=== PATIENT | female | born 1955 | race Caucasian/White ===

== ENCOUNTER 2020-03-28 11:54 | Day surgery (SDC) | payer OTHER ==
[~2020-03-28] VITALS: Ht 165.1 cm; Wt 59.0 kg
[~2020-03-28 11:54] MED LIST: FISH OIL 1,0001 EAC2 NG
--- NOTE | 2020-03-28 13:42 | NUR ---
03/28/20 1342 Bernie Arguello 1337- PT ARRIVES TO PACU AWAKE AND ORIENTED. PT REPORTS NO PAIN OR NAUSEA. RESP EVEN AND UNLABORED. OXYGEN SAT HIGH 90'S TO 100% ON 2L VIA NC. 1341- PT PASSING FLATUS. 1342- OXYGEN TITRATED OFF.
--- NOTE | 2020-03-29 18:28 | OR ---
[facility] [address] [place], [place] [address] Signed DATE OF OPERATION: 03/28/2020 SURGEON: Kiesha Damian MD PREOPERATIVE DIAGNOSIS: History of tubular adenomas in 2011. POSTOPERATIVE DIAGNOSIS: Polyps x2 (cecum and left colon at 40 cm). PROCEDURE: Total colonoscopy to cecum with cold morcellation polypectomy x1 and cold snare polypectomy x1. ANESTHESIA: Intravenous sedation, fentanyl 100 mcg and Versed 4 mg. INDICATIONS: This 64-year-old white woman is a patient of Ms. in [place], [place] and the patient has been referred for consideration of surveillance colonoscopy. Colonoscopy was performed in 2011, which showed findings of a tubular adenoma. The patient currently has no symptoms of bleeding, diarrhea, or constipation. She does have family history of lymphoma in her father. She is admitted at this time to undergo colonoscopy understanding risks of bleeding, infection, and perforation. FINDINGS: The prep was excellent. Complete colonoscopy was undertaken to the cecum without question. She had a small polyp of the cecum, which was excised with cold morcellation technique and another larger polyp about 8 mm at least in size at 40 cm excised with cold snare technique. Both were retrieved and passed for pathology. There were no other findings of concern. DESCRIPTION OF PROCEDURE: The patient was brought to the endoscopy suite and placed in lateral decubitus position, given intravenous sedation to the point of slurred speech and nystagmus. Digital rectal examination was normal. An Olympus video colonoscope was passed in the rectum and manipulated throughout the colon noting a very good bowel prep. The colon was rather redundant, it was noted. The scope was ultimately advanced to the cecum. There was a small polyp of the cecum, which Electronically Signed By: KIESHA DAMIAN MD 03/29/20 1828 PATIENT NAME: SHAI PALM OPERATIVE REPORT DATE OF : 57 REPORT #: [id number] PHYSICIAN: KIESHA DAMIAN MD PCP: COSMO BENITEZ PA-C REPORT IS CONFIDENTIAL AND NOT TO BE RELEASED WITHOUT AUTHORIZATION [facility] [address] [place], [place] [address] Signed was excised with cold morcellation technique. The scope was further withdrawn and remaining colon was normal until approximately 40 cm from the anal verge where a sessile larger polyp approximately 1 cm in size was noted. This was sessile. This was excised with cold snare technique without problem. The scope was then withdrawn. The patient was taken to recovery room in good condition. Both polyps were retrieved and passed for pathology. CONCLUDING DIAGNOSIS: Polyps x2. PLAN: Recommend repeat colonoscopy in 3 years or sooner if adverse pathology is noted later if hyperplasia rather than adenomatous changes noted. MD GEGE Goel/MODL /[id number] Copies: ~ Electronically Signed By: KIESHA DAMIAN MD 03/29/20 1828 PATIENT NAME: SHAI PALM OPERATIVE REPORT DATE OF : 57 REPORT #: [id number] PHYSICIAN: KIESHA DAMIAN MD PCP: COSMO BENITEZ PA-C REPORT IS CONFIDENTIAL AND NOT TO BE RELEASED WITHOUT AUTHORIZATION
--- NOTE | 2020-03-30 12:34 | PATH ---
[facility] [address] [facility] [place], [place] [address] Signed SPECIMEN(S): A CECAL POLYP SPECIMEN(S): B COLON POLYP AT 40 CM SPECIMEN SOURCE: A. CECAL POLYP B. COLON POLYP AT 40 CM CLINICAL HISTORY: Surveillance colonoscopy; history of tubulovillous adenoma. MICROSCOPIC DESCRIPTION: Histologic sections of all submitted blocks are examined by light microscopy. These findings, together with the gross examination, support the pathologic diagnosis. FINAL PATHOLOGIC DIAGNOSIS: A. Colon, cecum, polyp, polypectomy: - Tubular adenoma. - Negative for high-grade dysplasia or malignancy. B. Colon, polyp at 40 cm, polypectomy: - Hyperplastic polyp. - Negative for dysplasia or malignancy. NAL:cml:C2NR GROSS DESCRIPTION: Two specimens are received in two containers, labeled "KS." A. The specimen, labeled "KS," and designated on the requisition "cecum polypectomy," is received in formalin and consists of one fragment of pink-crane tissue (0.3 x 0.3 x 0.1 cm). The specimen is submitted entirely in cassette (A1). B. The specimen, labeled "KS," and designated on the requisition "colon polypectomy, 40 cm," is received in formalin and consists of one fragment of pink-crane tissue (1.1 x 0.4 x 0.2 cm). The specimen is submitted entirely in cassette (B1). AC (under the direct supervision of a pathologist) The Gross Description was prepared using a voice recognition system. The report was reviewed for accuracy; however, sound-alike word errors, addition and/or deletions may occur. If there is any question about this report, please contact Client Services. PERFORMING LABORATORY: The technical component was performed by [employer], Tamanna Earlshane Jesse, PATIENT NAME: SHAI PALM PATHOLOGY DATE OF : 57 REPORT #: [id number] PHYSICIAN: JAMES JAMES PCP: COSMO BENITEZ PA-C REPORT IS CONFIDENTIAL AND NOT TO BE RELEASED WITHOUT AUTHORIZATION [facility] [address] [place], [place] [address] [place] [address] (Gypsum Roofer: Salma Berg MD; CLIA# [id number]). Professional interpretation was performed by [facility], [address] [address] (CLIA# [id number]). Diagnostician: Veronique Rouse MD Pathologist Electronically Signed 03/30/2020 Copies: ~ PATIENT NAME: SHAI PALM PATHOLOGY DATE OF : 57 REPORT #: [id number] PHYSICIAN: JAMES JAMES PCP: COSMO BENITEZ PA-C REPORT IS CONFIDENTIAL AND NOT TO BE RELEASED WITHOUT AUTHORIZATION
== END 2020-03-28 14:15 | disposition home or self-care (01) ==
LOC: OPS 11:54 → DS 13:00 → OPS 14:15
PROVIDERS: Surgery
PROC: 0DBE8ZZ Excision of Large Intestine, Via Natural or Artificial Opening Endoscopic (ICD-10-PCS; 2020-03-28)
PROC: 0DBH8ZZ Excision of Cecum, Via Natural or Artificial Opening Endoscopic (ICD-10-PCS; principal; 2020-03-28 13:00)
DX: Z12.11 Encounter for screening for malignant neoplasm of colon (principal); D12.0 Benign neoplasm of cecum; Z86.010 Personal history of colon polyps; F17.210 Nicotine dependence, cigarettes, uncomplicated
CPT/HCPCS: 99153; G0500; J2250; J3010

== ENCOUNTER 2023-06-06 09:45 | Day surgery (SDC) | payer MEDICARE ==
[~2023-06-06] VITALS: Ht 165.1 cm; Wt 59.0 kg
[2023-06-06 09:58] VITALS: BP 130/71
[2023-06-06] MEDS ORDERED: BRIMONIDINE-TIMO5 ML OD (10:02)
[2023-06-06] MEDS ORDERED: LATANOPROST2.5 ML OPTH (10:02)
--- NOTE | 2023-06-06 11:18 | NUR ---
PT AND PT'S RIDE UPDATED ON WAIT TIMES FOR PROCEDURE. BOTH PARTIES AGREEABLE AND UNDERSTANDING.
--- NOTE | 2023-06-06 13:34 | NUR ---
06/06/23 1334 Becky Treadwell 1324 PT TO PACU AWAKE AND ALERT DENIES PAIN AND NAUSEA. PT ON ROOM AIR MAINTAINS SATS ABOVE 90%. PT ASKING QUESTIONS ABOUT PROCEDURE ALL ANSWERED TO PT SATISFACTION.
[2023-06-06 13:51] VITALS: BP 120/64
--- NOTE | 2023-06-09 15:34 | OR ---
[facility] [address] [place], [place] [address] Signed DATE OF OPERATION: 06/06/2023 SURGEON: Kiesha Damian MD PREOPERATIVE DIAGNOSIS: History of tubular adenoma 2019. POSTOPERATIVE DIAGNOSIS: 1 cm polyp, proximal ascending colon (excised). PROCEDURE: Total colonoscopy to cecum with cold snare polypectomy x1. ANESTHESIA: Intravenous sedation; fentanyl 100 mcg and Versed 7 mg. INDICATION: This 67-year-old white woman underwent colonoscopy in 2011. At that time, having a tubulovillous adenoma of the rectum. Colonoscopy in 2019 confirmed a hyperplastic polyp at 40 cm and a tubular adenoma of the cecum without dysplasia. She is admitted for screening colonoscopy at this time. She understands the risk of bleeding, infection, and perforation. FINDINGS: The prep was excellent. Complete colonoscopy was undertaken to the cecum. There was a soft sessile polyp of the proximal ascending colon, which was excised with cold snare technique. The remaining colon was normal. DESCRIPTION OF PROCEDURE: The patient was brought to the endoscopy suite and placed in the lateral decubitus position, given intravenous sedation to the point of slurred speech and nystagmus. Digital rectal examination was normal. An Olympus video colonoscope was passed in the rectum and manipulated throughout the colon ultimately intubating the cecum itself. The ileocecal valve and appendiceal orifice were normal. The scope was withdrawn from that point and immediately noted in the proximal ascending colon was a small sessile soft polyp, this was excised with cold snare technique. Morcellation was required to had tenacious attachments. Once polypoid tissue was explanted, the scope was then withdrawn and the remaining colon was found to be normal including retroflexed view of the rectum. The scope was removed Electronically Signed By: KIESHA DAMIAN MD 06/09/23 1534 PATIENT NAME: SHAI PALM OPERATIVE REPORT DATE OF : 57 REPORT #: [id number] PHYSICIAN: KIESHA DAMIAN MD PCP: COSMO BENITEZ PA-C REPORT IS CONFIDENTIAL AND NOT TO BE RELEASED WITHOUT AUTHORIZATION [facility] [address] [place], [place] [address] Signed and the patient was taken to the recovery room in good condition. CONCLUDING DIAGNOSIS: Polyp right colon, excised. PLAN: Recommend repeat colonoscopy in 3 to 5 years, sooner if symptoms should develop. She will return to the ongoing care of ELIS Rosario MD GEGE Goel/AKILL /[id number] cc: ELIS Rosario Copies: ~ Electronically Signed By: KIESHA DAMIAN MD 06/09/23 1534 PATIENT NAME: SHAI PALM OPERATIVE REPORT DATE OF : 57 REPORT #: [id number] PHYSICIAN: KIESHA DAMIAN MD PCP: COSMO BENITEZ PA-C REPORT IS CONFIDENTIAL AND NOT TO BE RELEASED WITHOUT AUTHORIZATION
--- NOTE | 2023-06-10 17:33 | PATH ---
[facility] [address] [place], [place] [address] Signed SPECIMEN(S): A PROXIMAL ASCENDING/RIGHT COLON POLYP SPECIMEN SOURCE: A. PROXIMAL ASCENDING/RIGHT COLON POLYP CLINICAL HISTORY: Colonoscopy. History of tubular adenoma in 2019. FINAL PATHOLOGIC DIAGNOSIS: Proximal ascending/right colon polyp: - Serrated polyp/adenoma (4 fragments). JVR:temitope MICROSCOPIC EXAMINATION: Histologic sections of all submitted blocks are examined by light microscopy. These findings, together with the gross examination, support the pathologic diagnosis. GROSS DESCRIPTION: The specimen, labeled and designated "Ramiro Palm, colon, proximal ascending/right polypectomy," is received in formalin and consists of 4 crane soft tissue fragments measuring 0.4 x 0.7 cm in greatest dimension, all specimens are submitted entirely in (A1). MMA (under the direct supervision of a pathologist) The Gross Description was prepared using a voice recognition system. The report was reviewed for accuracy; however, sound-alike word errors, addition and/or deletions may occur. If there is any question about this report, please contact Client Services. PERFORMING LABORATORY: Technical component was performed by [facility], [address] [place] [id number] (CLIA# [id number]). Professional interpretation was performed by [facility], [address] [place] [id number] (CLIA#: [id number]). Diagnostician: Gagan Love MD Pathologist Electronically Signed 06/10/2023 Copies: PATIENT NAME: SHAI PALM PATHOLOGY DATE OF : 57 REPORT #: [id number] PHYSICIAN: JAMES PATHOLOGY PCP: COSMO BENITEZ PA-C REPORT IS CONFIDENTIAL AND NOT TO BE RELEASED WITHOUT AUTHORIZATION [address] [address] Signed ~ PATIENT NAME: SHAI PALM PATHOLOGY DATE OF : 57 REPORT #: [id number] PHYSICIAN: JAMES PATHOLOGY PCP: COSMO BENITEZ PA-C REPORT IS CONFIDENTIAL AND NOT TO BE RELEASED WITHOUT AUTHORIZATION
== END 2023-06-06 14:00 | disposition home or self-care (01) ==
LOC: OPS 09:45 → DS 09:45 → OPS 11:00 → DS 13:45 → OPS 13:45
PROVIDERS: ATTEND Surgery
PROC: 0DBK8ZX Excision of Ascending Colon, Via Natural or Artificial Opening Endoscopic, Diagnostic (ICD-10-PCS; principal; 2023-06-06 11:00)
DX: Z12.11 Encounter for screening for malignant neoplasm of colon (principal); D12.2 Benign neoplasm of ascending colon; Z86.010 Personal history of colon polyps; F17.210 Nicotine dependence, cigarettes, uncomplicated; Z78.0 Asymptomatic menopausal state
CPT/HCPCS: 88305; 99153; G0500; J2250; J3010; J7121

== ENCOUNTER 2024-09-24 05:53 | Day surgery (SDC) | payer MEDICARE ==
[2024-09-16 13:33] VITALS: BP 113/69
[~2024-09-24] VITALS: Ht 165.1 cm; Wt 59.1 kg
[~2024-09-24 05:53] MED LIST changes: +BRIMONIDINE-TIMO5 ML OD; +CALCIUM-MAGNES1 EA10 PO; +DORZOLAMIDE HCL10 ML OD; -FISH OIL 1,0001 EAC2 NG; +FISH OIL 1,001000 MG PO; +LACTATED RINGER'S 1,000 ML IV SCH; +LATANOPROST2.5 ML OU; +RED YEAST RICE600 MG PO; +VIT D2-K1 20-1259 ML PO
[2024-09-24 06:11] VITALS: BP 116/72
[2024-09-24] MEDS ORDERED: DORZOLAMIDE-TIM10 ML OU (06:16)
[2024-09-24] MEDS ORDERED: CEFAZOLIN SODIUM 2 GM/20 ML SYR IV SCH (07:00)
[2024-09-24] MEDS ORDERED: HEParin SOD (PORCINE) 5,000 UNIT/ML SDV SUB-Q SCH (07:00)
[2024-09-24] MEDS ORDERED: LIDOCAINE HCL 1% 5 ML SDV INJ ONE (07:00)
[2024-09-24] MEDS ORDERED: IBLOOD GLUCOSE TEST STRIP 1 EA TEST VI PRN ×2 (07:00→08:15)
[2024-09-24] MEDS ORDERED: propofoL 200 MG/20 ML VIAL ONE (07:11)
[2024-09-24] MEDS ORDERED: LIDOCAINE HCL 2% 5 ML SDV ONE (07:11)
[2024-09-24] MEDS ORDERED: MIDAZOLAM HCL 2 MG/2 ML VIAL ONE (07:12)
[2024-09-24] MEDS ORDERED: fentaNYL citrate 100 MCG/2 ML VIAL ONE (07:12)
[2024-09-24] MEDS ORDERED: ePHEDrine sulfate 50 MG/ML AMP ONE (07:50)
[2024-09-24] MEDS ORDERED: ondansetron HCL 4 MG/2 ML VIAL ONE (07:52)
[2024-09-24] MEDS ORDERED: DEXAMETHASONE SOD PHOS 4 MG/ML VIAL ONE (07:52)
[2024-09-24] MEDS ORDERED: ACETAMINOPHEN 1,000 MG/100 ML VIAL ONE (07:52)
[2024-09-24] MEDS ORDERED: KETOROLAC TROMETHAMINE 30 MG/ML VIAL ONE (07:52)
[2024-09-24] MEDS ORDERED: LACTATED RINGER'S 1,000 ML IV ONE (08:03)
[2024-09-24] MEDS ORDERED: HYDROmorphone HCL 1 MG/ML SYR IV PRN (08:15)
[2024-09-24] MEDS ORDERED: NALOXONE HCL 0.4 MG SYR IV PRN ×2 (08:15→08:30)
[2024-09-24] MEDS ORDERED: ondansetron HCL 4 MG/2 ML VIAL IV PRN (08:15)
[2024-09-24] MEDS ORDERED: droPERidol 5 MG/2 ML VIAL IV PRN (08:15)
[2024-09-24] MEDS ORDERED: fentaNYL citrate 50 MCG/ML SDV IV PRN (08:15)
[2024-09-24] MEDS ORDERED: PROCHLORPERAZINE EDISYLATE 10 MG/2 ML VIAL IV PRN (08:15)
[2024-09-24] MEDS ORDERED: OXYCODONE/APAP 7.5/325 TAB PO PRN (08:30)
[2024-09-24] MEDS ORDERED: LACTATED RINGER'S 1,000 ML IV SCH (08:30)
[2024-09-24] MEDS ORDERED: IBUPROFEN 600 MG TAB PO PRN (08:30)
[2024-09-24] MEDS ORDERED: ACETAMINOPHEN 500 MG TAB PO PRN (08:30)
[2024-09-24] MEDS ORDERED: ACETAMINOPHEN500 MG PO (08:31)
[2024-09-24] MEDS ORDERED: OXYCODON-ACETA1 EAC2 PO (08:31)
[2024-09-24] MEDS ORDERED: IBUPROFEN600 MG PO (08:31)
--- NOTE | 2024-09-24 08:40 | NUR ---
09/24/24 0840 Sheets,Emily 0819 PT ARRIVED TO PACU WITH ORAL AIRWAY IN PLACE AND JAW THRUST USED OFF AND ON TO MAINTAIN AIRWAY. 6L VIA MASK IN PLACE. 0822 PT WOKE TO TACTILE STIMULI AND ORAL AIRWAY REMOVED. PT REORIENTED TO PACU. 0823 O2 MASK REMOVED, PT REACHING UP TO FACE. 0833 PT REPORTS PAIN IS 3-4/10 AND TOLERABLE, PLAN OF CARE DICUSSED. AT BEDSIDE TALKING TO PT. 0839 HOB INCREASED AND PT SIPPING WATER PER REQUEST. EDUCAITON GIVEN AND QUESTIONS ANSWERED ABOUT NICOTINE PATCHES. PT RESTING WITH EYES OPEN AND DENIES CONCERNS. VSS.
[2024-09-24 08:45] VITALS: BP 119/58
--- NOTE | 2024-09-24 08:45 | NUR ---
PT ARRIVED BACK TO DAY SURGERY VIA STRETCHER. ORIENTED TO ROOM AND CALL LIGHT. PT RAITING PAIN 4/10 IN ABDOMEN. DRESSING TO ABDOMEN C/D/I. FRESH WATER AND CRACKERS GIVEN AT THIS TIME.
--- NOTE | 2024-09-24 09:30 | NUR ---
INTO PTS ROOM FOR ROUTINE CHECK AND PT EDUCATION. PTS REMAINS AT BEDSIDE. ICE WATER REFILLED AND PT PROVIDED COFFEE. PT HAS EATEN CRCKERS AND DENIES ANY NAUSEA WHEN ASKED. PT RATES PAIN IN SURGICAL SITE TO BE A 4/10 AND DECLINES ANY PAIN INTERVENTIONS, REPORTING THIS TO BE TOLERABLE FOR HER. PT ASKING TO SIT UP FARTHER AND HOB WAS ELEVATED TO APPROX 60 DEGREES AFTER PILLOW PROVIDED WITH EDUCATION ON USE FOR SPLINTING SURGICAL SITE TO HELP WITH PAIN CONTROL DURING POSITION CHANGES, COUGHING, ECT. PT VERBALIZED AND DEMONSTRATED UNDERSTANDING. BED IN LOW POSITION, WHEELS LOCKED, BILAT RAILS IN PLACE, AND CALL LIGHT WITHIN PT REACH.
[2024-09-24 09:45] VITALS: BP 107/55
--- NOTE | 2024-09-24 09:45 | NUR ---
INTO PTS ROOM FOR ROUTINE REASSESSMENT. VS TAKEN. IV SITE ASSESSED. SURGICAL SITE VISUALIZED AND REMAINS CDI. PT REPORT PAIN 3/10 AND DECLINES INTERVENTION AT THIS TIME, REPORTING PAIN TO BE TOLERABLE. PTS REMAINS IN ROOM AT BEDSIDE. PT DENIES NAUSEA WHEN ASKED. PT TOLERATING PO FOOD AND FLUIDS WELL WITHOUT ISSUES. PT DENIES URGE TO VOID AT THIS TIME. CALL LIGHT WITHIN PT REACH. BED IN LOW POSITION, WHEELS LOCKED, BILAT RAILS IN PLACE. PERSONAL BELONGINGS WITHIN PT REACH ON BEDSIDE TABLE.
[2024-09-24 10:51] VITALS: BP 129/72
--- NOTE | 2024-09-24 10:55 | NUR ---
1035-CALL LIGHT ANSWERED. PT REPORTS URGE TO VOID. IV SL'D. PT ASSISTED TO SITTING POSITION ON EOB. PT DENIES DIZZINESS, LIGHTHEADEDNESS, ECT WITH POSITION CHANGE. PTS GOWN FASTENED AND SECURED. PT AMBUALTED ACCROSS GILMORE TO RESTROOM WITH RN SBA FOR SAFETY. PT ABLE TO VOID APPROX 400 ML OF PALE, CLR, YELLOW URINE. 1040-PT BACK TO ROOM AND SITTING ON EOB WITH CALL LIGHT AND PERSONAL BELONINGS WITHIN REACH. PTS AT BEDSIDE AND IS ASSISTING PT WITH DRESSING FOR DISCHARGE. 1045-INTO PTS ROOM FOR ROUTINE REASSESSMENT AND DISCHARGE EDUCATION. VS TAKEN. IV REMOVED. TIP APPEARS INTACT AND PRESSURE DRSG APPLIED WITH GAUZE AND COBAN. SURGICAL SITE VISUALIZED POST-AMBUALTION AND REMAINS CDI WITH NO CHANGES FROM PREVIOUS ASSESSMENT. PT REPORTS PAIN 0.5/10 AND DECLINES NAY NEED FOR INTERVENTION AT THIS TIME, NOTING THIS LEVEL OF PAIN TO BE "MORE THAN TOLERABLE" FOR HER. PT NOTED TO BE SMILING AND APPEARS IN GOOD SPIRITS. PT IS NOTED TO BE AAOX3 AND ABLE TO MAKE HER NEEDS KNOWN. PT ANSWERS QUESTIONS APPROPRIATELY. PT PROVIDED F/U APPT, HARD COPY RX, DRSG CARE INSTRUCTIONS, AND ACTIVITY RESTRICTIONS. PT AND VERBALIZED UNDERSTANDING. PT EDUCATED ON NEW RX'S AND NEED NOT TO EXCEED 4000 MG OF APAP FROM ALL SOURCES IN 24 HOURS. PT EDUCATED ON PERCOCET CONTAINING APAP WELL. PT VERBALIZED UNDERSTANDING. 1055-PTS SPOUSE LEFT TO PULL CAR AROUND TO FRONT OF HOSPITAL. PT ASSISTED IN GATHERING ALL REMAINING PERSONAL BELONINGS. ICE WATER REFILLED FOR TRIP HOME TO [place].
--- NOTE | 2024-09-24 11:00 | NUR ---
PT DISCHARGED FROM DS VIA WC TO PASSENGER SIDE OF HUSBANDS VEHICLE. ALL QUESTIONS HAVE BEEN ANSWERED. ALL PERSONAL BELONGINGS TAKEN WITH PT.
--- NOTE | 2024-09-29 12:42 | OR ---
[facility] [address] [place], [place] [address] Signed DATE OF OPERATION: 09/24/2024 SURGEON: Kiesha Damian MD PREOPERATIVE DIAGNOSIS: Supraumbilical hernia, incarcerated, non-strangulated. POSTOPERATIVE DIAGNOSIS: Supraumbilical hernia, incarcerated, non-strangulated, incarcerated properitoneal and omental fat. PROCEDURE: Repair of incarcerated, non-strangulated supraumbilical hernia without implantation of mesh defect size 1.8 cm. ANESTHESIA: General LMA, Martín Barr CRNA and local 10 mL of 0.25% Marcaine with epinephrine. INDICATION: This 69-year-old white woman, who is a smoker, is a patient of Cosmo Benitez. She was referred for colonoscopy and found also to have a hernia in the epigastric area. An ultrasound was performed showing a hernia defect of 1.8 cm. She has symptoms related to her hernia from time to time. The hernia is not reducible. It does not likely have a hollow viscus associated with it. There is no local tenderness currently. She is admitted at this time to undergo repair of the incarcerated supraumbilical hernia, understands the risk of bleeding, infection, and recurrence. FINDINGS: Herniated viscus was properitoneal fat as well as a portion of omentum. There was no sign of infarction to the fatty tissue. Reduction of the hernia was accomplished and the defect was measured at 1.8 cm. The defect was repaired with a transverse closure using interrupted 0 Prolene suture. There were no complications. DESCRIPTION OF PROCEDURE: The patient was brought to the operating room, given a general LMA type anesthetic. Preoperative antibiotic Ancef was given. Sequential compression device stockings used and heparin subcutaneously administered. The abdomen was prepared with a chlorhexidine solution and draped sterilely. A vertical incision was made directly over the hernia site. Dissection carried through the subcutaneous tissue and fatty tissue revealing the underlying hernia sac and hernia. The herniated viscus appeared to be fat. This was Electronically Signed By: KIESHA DAMIAN MD 09/29/24 1242 PATIENT NAME: SHAI PALM OPERATIVE REPORT DATE OF : 57 REPORT #: [id number] PHYSICIAN: KIESHA DAMIAN MD PCP: COSMO BENITEZ PA-C REPORT IS CONFIDENTIAL AND NOT TO BE RELEASED WITHOUT AUTHORIZATION [facility] [address] [place], [place] [address] Signed dissected free from surrounding soft tissue. An impressive amount of soft tissue was actually noted. The fascial edge was freed from the hernia sac and the hernia contents were returned to the properitoneal space. The defect was measured at 1.8 cm. On that basis, mesh was deemed unnecessary. The fascial defect was closed transversely with interrupted 0 Prolene suture in a horizontal mattress configuration. 10 mL of 0.25% Marcaine with epinephrine was injected locally. Han layer was reapproximated with interrupted 2-0 Vicryl and skin closed with running subcuticular 3-0 Vicryl. Steri- Strips were applied. The patient tolerated the procedure well. Extubated without problem, taken to the recovery room in good condition. Kiesha Damian MD JM/MODL /[id number] cc: ELIS Van Copies: ~ Electronically Signed By: KIESHA DAMIAN MD 09/29/24 1242 PATIENT NAME: SHAI PALM OPERATIVE REPORT DATE OF : 57 REPORT #: [id number] PHYSICIAN: KIESHA DAMINA MD PCP: COSMO BENITEZ PA-C REPORT IS CONFIDENTIAL AND NOT TO BE RELEASED WITHOUT AUTHORIZATION
== END 2024-09-24 11:00 | disposition home or self-care (01) ==
LOC: DS 05:53
PROVIDERS: ATTEND Surgery
PROC: 0WQF0ZZ Repair Abdominal Wall, Open Approach (ICD-10-PCS; principal; 2024-09-24 07:30)
DX: K43.6 Other and unspecified ventral hernia with obstruction, without gangrene (principal); F17.210 Nicotine dependence, cigarettes, uncomplicated; Z90.49 Acquired absence of other specified parts of digestive tract
CPT/HCPCS: 00750; J0131; J0690; J1100; J1644; J1885; J2003; J2250; J2405; J2704; J3010; J7121